=== PATIENT | male | born 1975 | race Caucasian/White ===

== ENCOUNTER 2025-06-08 08:55 | Emergency (ER) | payer SELFPAY ==
[2025-06-08] MEDS: Ondansetron 4 MG/2 ML SDV IVPUSH ONE (09:12)
[2025-06-08] MEDS: Ketorolac 30 MG/ML SDV IVPUSH ONE (09:12)
[2025-06-08] MEDS: Lactated Ringers 1,000 ML IV ONE (09:14)
[2025-06-08 09:15] LABS: BASOPHILS PERCENT AUTO 0.3 % (0.0-1.0); EOSINOPHILS PERCENT AUTO 0.2 % (1.0-3.0); LYMPHOCYTES PERCENT AUTO 10.1 % (20.5-50.1); MONOCYTES PERCENT AUTO 5.1 % (2-8); NEUTROPHILS PERCENT AUTO 84.3 % (42.2-75.2); PLATELET COUNT,PLT 380 10^3/uL (150-450); RED BLOOD CELL COUNT 5.83 10^6/uL (4.6-6.2); WHITE BLOOD CELL COUNT,WBC 17.6 10^3/uL (5.0-10.0)
[2025-06-08 09:37] LABS: A/G RATIO 1.1; ALANINE AMINOTRANSFERASE,ALT 17.0 U/L (16-63); ASPARTATE AMNIOTRANSFERASE,AST 11.0 U/L (15-37); BILIRUBIN TOTAL 0.4 mg/dL (0.2-1.0); BLOOD UREA NITROGEN,BUN 16.0 mg/dL (7-18); CARBON DIOXIDE,CO2 33.0 mmol/L (21-32); CHLORIDE,CL 100.0 mmol/L (98-107); CREATININE 1.08 mg/dL (0.70-1.30); EST CRCL DRUG DOSING (CG) 85.43 mL/min; ESTIMATED GFR 84.0 mL/min (>=60); GLUCOSE RANDOM 125.0 mg/dL (70-99); POTASSIUM,K 3.3 mmol/L (3.5-5.1); PROTEIN TOTAL,TP 7.8 g/dL (6.4-8.2); SODIUM,NA 143.0 mmol/L (136-145)
[2025-06-08] MEDS: Iopamidol 612 MG/ML 100 ML Bottle IVPUSH ONE (09:47)
== END 2025-06-08 10:32 | disposition home or self-care (01) ==
LOC: DL.ED 08:55
DX: K52.9 Noninfective gastroenteritis and colitis, unspecified (principal)
CPT/HCPCS: 36415; 74177; 80053; 83690; 85025; 96361; 96374; 96375; 99284; J1171; J1885; J2405; J7120; Q9967